=== PATIENT | female | born 1980 | race Caucasian/White ===

== ENCOUNTER → 2017-01-03 | Outpatient (CLI) | payer OTHER ==
[~2017-01-03] MED LIST: BACI1TAB2 PO; FAMO-119 PO; HYDR-3729 PO; IBUP-1773 PO; LORA0.5T PO; LORA10TA7 PO; MECL-106 PO; Muscle relaxant; NEBI2.5T5 PO; NORG1TAB33 PO; SCOP1PAT TD; Sudafed
--- OUTSIDE RECORDS SUMMARY | 2017-01-03 12:53 | XMS REPORT | Continuity of Care Document ---
Author Author [facility] Organization [facility] Address Unknown Phone Unavailable Care Team Providers Care Maintenance Groundman Name Role Phone PAUL KOENIG PCP Insurance Providers Payer Name Policy Number Subscriber Name Relationship Enter Insurance Name [id number] Vivian Jeffery 18 Self / Same As Patient Advance Directives Directive Response Recorded Date/Time Advance Directives No 08/18/16 8:30pm Health Care Power of Senior Technical Writer No 08/18/16 8:30pm Organ Donor No 08/18/16 8:30pm Resuscitation Status Full Code 08/18/16 8:30pm Chief Complaint and Reason for Visit Chief Complaint Dizziness/Syncope Reason for Visit Vertigo Problems Active Problems Medical Problem Onset Date Status Vertigo Unknown Acute Medications Current Home Medications Medication Dose Units Route Directions Days/Qty Instructions Start Date Nebivolol Hcl 2.5 Mg 1.25 Mg Oral Daily 02/21/16 Famotidine 20 Mg 20 Mg Oral Twice A Day 02/21/16 Bacillus Coagulans 1 Each 2 Each Oral Daily 02/21/16 Norgestrel-Ethinyl Estradiol 1 Each 1 Each Oral Daily 08/18/16 [Muscle Relaxant] 08/18/16 Loratadine 10 Mg 10 Mg Oral Daily 08/18/16 [Sudafed] 08/18/16 Meclizine Hcl 25 Mg 25-50 Mg Oral Every 6 Hours for Dizziness 30 08/18 Scopolamine 1 Each 1 Each Transderm Q72 Hours for Dizziness 3 08/18/16 Past Home Medications Medication Directions Ordered Status Lorazepam (Ativan) 0.5 Mg Tablet, 1 Each Oral Three Times A Day And Prn 11/21 Discontinued Ibuprofen 600 Mg Tablet, 600 Mg Oral Every 6 Hours for Pain 02/27/16 Discontinued Hydrocodone/Acetaminophen 1 Each Tablet, 1-2 Each Oral Every 4HRS for Pain Discontinued Social History Social History Problem Response Recorded Date/Time Alcohol Use Denies Use 02/27/2016 9:10am Recreational Drug Use No 02/27/2016 9:10am Recent Foreign Travel No 08/18/2016 8:30pm Recent Infectious Disease Exposure No 08/18/2016 8:30pm HIV/AIDS No 08/18/2016 8:30pm Smoking Status Never a Smoker 08/18/2016 8:30pm Recent Hopitalizations No 08/18/2016 8:30pm Query Response Start Date Stop Date Smoking Status Never a Smoker Hospital Discharge Instructions No hospital discharge instructions. Plan of Care Discharge Date 08/18/16 10:28pm Disposition 01 HOME, SELF-CARE Condition at Discharge Stable Instructions/Education Provided Vertigo (ED) Prescriptions See Medication Section Referrals PAUL KOENIG DO - Primary Care Physician Additional Instructions/Education LEAVE SCOPOLAMINE PATCH ON FOR 3 DAYS SLOW POSITION CHANGES FOLLOW UP WITH DR. KOENIG LATER THIS WEEK FOR FURTHER CARE All discharge instructions reviewed with patient and/or family. Voiced understanding. Functional Status Query Response Date Recorded Patient Orientation Person Place Time Situation August 18, 2016 8:30pm Comprehension Ability Understands Concepts August 18, 2016 8:30pm Allergies, Adverse Reactions, Alerts Allergen Type Severity Reaction Status Last Updated sulfamethoxazole ([id number]) Allergy Severe TACHYCARDIA Active 02/21/16 Trimethoprim Allergy Severe TACHYCARDIA Active 02/21/16 ALLEGY MEDS Allergy Severe TACHYCARDIA Active 02/21/16 STEROIDS Allergy Severe TACHYCARDIA Active 02/21/16 Immunizations No immunization records. Vital Signs Acute Vital Signs Vital Response Date/Time Temperature (Fahrenheit) 97.6 degrees F (97.6 - 99.5) 08/18/2016 8:30pm Temperature (Calculated Celsius) 36.20747 degrees C (36.4 - 37.5) 08/18/2016 8:30pm Temperature Source Temporal 08/18/2016 8:30pm Pulse Rate (adult) 81 bpm (60 - 90) 08/18/2016 8:30pm Respiratory Rate 20 bpm (12 - 24) 08/18/2016 8:30pm O2 Sat by Pulse Oximetry 100 % (88 - 100) 08/18/2016 8:30pm Blood Pressure 136/81 mm Hg 08/18/2016 8:30pm Blood Pressure Mean 99 mm Hg 08/18/2016 8:30pm Pain Numeric Pain Scale 0-No Pain 08/18/2016 8:30pm Height (Feet) 5 feet 08/18/2016 8:30pm Height (Inches) 6 inches 08/18/2016 8:30pm Height (Calculated Centimeters) 167.346496 cm 08/18/2016 8:30pm Weight (Pounds) 160 pounds 08/18/2016 8:30pm Weight (Calculated Kilograms) 72.934991 kilograms 08/18/2016 8:30pm Capillary Refill Capillary Refill Less Than 3 Seconds 08/18/2016 8:30pm Height 5 ft 6 in Weight 160 lb Body Mass Index 25.8 kg/m^2 Results Pending Laboratory Results Test Name Collection Date/Time Procedures No known history of procedures. Encounters Encounter Location Arrival/Admit Date Discharge/Depart Date Attending Provider Departed Emergency Room [facility] 08/18/16 8:02pm 08/18 10:28pm BEN GARY DO Registered Recurring [facility] 08/15/16 8:34am PAUL KOENIG DO Registered Clinic [facility] 07/31/16 2:24pm PAUL KOENIG DO Registered Clinic [facility] 07/30/16 8:50am ZAN PALM MD Recent Diagnosis
--- NOTE | 2017-01-03 14:02 | Diagnostic Imaging Report ---
PROCEDURE: MR imaging of the brain without contrast. TECHNIQUE: Multiplanar, multisequence MR imaging of the brain was performed without contrast. INDICATION: Dizziness with headache and neck pain. FINDINGS: No evidence of restricted signal on the diffusion sequence. No evidence of intracranial hemorrhage. Ventricles and cortical gyral pattern are normal. There is no mass effect. Basal cisterns are clear. CP angles appear normal. FLAIR sequence shows no evidence of demyelinating process. Brainstem appears normal as does the optic chiasm and pituitary. Orbital contents are symmetrical and normal. There is normal flow-void in the intracranial vessels. Mastoid air cells and paranasal sinuses are clear. IMPRESSION: Normal MRI of the brain without contrast. No changes are seen to suggest demyelinating process. Dictated by: Dictated on workstation # [id number]
--- NOTE | 2017-01-03 14:14 | Diagnostic Imaging Report ---
PROCEDURE: MR imaging cervical spine without contrast. TECHNIQUE: Multiplanar, multisequence MR imaging of the cervical spine was performed without contrast. INDICATION: Dizziness with left arm weakness and headaches. FINDINGS: Sagittal views without contrast show good alignment of the vertebral bodies. Body heights and disc spaces are well maintained. The atlantoaxial joint is in good alignment. There is no evidence of spinal stenosis. Degenerative disc changes are noted at C5-C6. There is uncovertebral hypertrophy noted both on the right and left, more prominent on the right causing mild to moderate encroachment upon the right neuroforamen. Mild encroachment noted on the left. Remaining discs appear normal. There is no central canal stenosis. The cervical cord is uniform in appearance. There is no increased T2 signal demonstrated within the cord. Central canal is not dilated. The prevertebral soft tissues appear normal. IMPRESSION: 1. Some degenerative cervical disc disease noted at C5-C6 with mild disc space bulge. There does appear to be some hypertrophic bony change along the uncovertebral joint bilaterally, more prominent on the right causing mild to moderate encroachment on the right neuroforamen. Dictated by: Dictated on workstation # [id number]
== END ==
LOC: RAD 12:49
PROVIDERS: ATTEND Family Medicine
DX: M50.30 Other cervical disc degeneration, unspecified cervical region (principal); R51 Headache; R42 Dizziness and giddiness
CPT/HCPCS: 70551; 72141

== ENCOUNTER → 2017-04-09 | Outpatient (CLI) | payer OTHER ==
--- NOTE | 2017-04-09 11:21 | Diagnostic Imaging Report ---
PROCEDURE: US Gallbladder. TECHNIQUE: Multiple real-time grayscale images were obtained over the right upper quadrant in various projections. INDICATION: Right upper quadrant pain. FINDINGS: The visualized portions of the pancreas appear unremarkable. The liver is fairly heterogenous with no focal lesion seen. There is hepatopedal flow in the portal vein seen. The gallbladder demonstrates no stones or wall thickening. The CBD is 3 mm in caliber. The right kidney is 10.8 CM in length with no hydronephrosis or focal lesion. No fluid collection in the upper right abdomen seen. Sonographic sign is reportedly negative. IMPRESSION: Unremarkable exam. Dictated by: Dictated on workstation # [id number]
== END ==
LOC: RAD 07:03
PROVIDERS: ATTEND Nurse Practitioner Family
DX: R10.11 Right upper quadrant pain (principal)
CPT/HCPCS: 76705

== ENCOUNTER → 2017-04-21 | Outpatient (CLI) | payer OTHER ==
[~2017-04-21] MED LIST changes: +CATHETER FLUSH 10 ML SYR IV PRN
--- NOTE | 2017-04-21 12:31 | Diagnostic Imaging Report ---
EXAMINATION: HIDA with EF measurements Indication: Abdominal pain TECHNIQUE: After the intravenous administration of 5.1 mCi of Tc 99m Choletec, imaging over the abdomen was obtained. This was followed by administration of Ensure orally to stimulate intrinsic CCK secretion, followed by continued imaging with ejection fraction measured. FINDINGS: There is homogeneous uptake in the liver with prompt bile duct and gallbladder filling seen. Bowel activity is seen at 40 minutes. Based on further imaging and gallbladder area of interest activity measurements after the administration of Ensure, the gallbladder ejection fraction is estimated at 74%. IMPRESSION: 1. Normal hepatobiliary uptake and Gallbladder filling. 2. Normal gallbladder ejection fraction. Dictated by: Dictated on workstation # [id number]
== END ==
LOC: CARD 09:56
PROVIDERS: ATTEND Family Medicine
DX: R10.11 Right upper quadrant pain (principal); R74.8 Abnormal levels of other serum enzymes
CPT/HCPCS: 78227

== ENCOUNTER → 2020-10-31 | Outpatient (CLI) | payer OTHER ==
[~2020-10-31] MED LIST changes: -CATHETER FLUSH 10 ML SYR IV PRN; -MECL-106 PO; +MECL-149 PO; -SCOP1PAT TD; +SCOP1PAT11 TD
--- NOTE | 2020-11-01 10:25 | Diagnostic Imaging Report ---
Indication: Routine screening. No prior mammograms are available for comparison. This is a baseline study. 2-D and 3-D bilateral screening mammography was performed with CAD. Both breasts are heterogeneously dense, limiting the sensitivity of mammography. No mass or malignant appearing microcalcifications are seen. Axillae are unremarkable. IMPRESSION: BI-RADS Category 1 1. No mammographic features suspicious for malignancy are identified. ACR BI-RADS Category 1: Negative. Result letter will be mailed to the patient. Note: At least 10% of breast cancer is not imaged by mammography. Dictated by: Dictated on workstation # [id number]
== END ==
LOC: RAD 14:45
PROVIDERS: ATTEND Obstetrics & Gynecology
DX: Z12.31 Encounter for screening mammogram for malignant neoplasm of breast (principal)
CPT/HCPCS: 77063; 77067

== ENCOUNTER → 2022-10-11 | Outpatient (CLI) | payer OTHER ==
[~2022-10-11] MED LIST changes: +SCOP1PAT10 TD; -SCOP1PAT11 TD
--- NOTE | 2022-10-11 20:48 | Diagnostic Imaging Report ---
INDICATION: Routine screening. COMPARISON: Prior mammogram from 10/31/2020. EXAMINATION: 2D and 3D bilateral screening mammography was performed with CAD. The current study was also evaluated with a Computer Aided Detection (CAD) system. FINDINGS: Both breasts are heterogeneously dense, limiting the sensitivity of mammography. No mass or malignant appearing microcalcifications are seen. Axillae are unremarkable. IMPRESSION: No mammographic features suspicious for malignancy are identified. ACR BI-RADS Category 1: Negative. Result letter will be mailed to the patient. Note: At least 10% of breast cancer is not imaged by mammography. Dictated by: Dictated on workstation # [id number]
== END ==
LOC: RAD 14:57
PROVIDERS: ATTEND Family Medicine
DX: Z12.31 Encounter for screening mammogram for malignant neoplasm of breast (principal)
CPT/HCPCS: 77063; 77067